=== PATIENT | female | born 1955 | race Hispanic/Latino ===

== ENCOUNTER 2017-12-08 08:16 | Outpatient (CLI) | payer OTHER | END 2017-12-08 08:17 | disposition home or self-care (01) | LOC: BICMAMMO 08:16 | PROVIDERS: ATTEND Physician Assistant | DX: Z12.31 Encounter for screening mammogram for malignant neoplasm of breast (principal) | CPT/HCPCS: 77063; 77067 ==

== ENCOUNTER 2018-03-14 11:03 | Outpatient (CLI) | payer OTHER | END 2018-03-14 11:04 | disposition home or self-care (01) | LOC: BICRAD 11:03 | PROVIDERS: ATTEND Family Medicine | DX: Z02.71 Encounter for disability determination (principal); M17.12 Unilateral primary osteoarthritis, left knee ==

== ENCOUNTER 2018-03-24 06:52 | Outpatient (CLI) | payer OTHER ==
--- NOTE | 2018-03-24 08:35 | ULT ---
PELVIC SONOGRAM TRANSABDOMINAL AND TRANSVAGINAL IMAGING: Date: 03/24/18 HISTORY: Postmenopausal bleeding. FINDINGS: Urinary bladder is decompressed. Uterus has a heterogeneous echotexture and is 8.7 cm. Endometrium is 1.4 cm. No free fluid. Neither ovary is visualized with transabdominal or transvaginal imaging. No solid or cystic adnexal m asses. IMPRESSION: Thickened endometrium of 1.4 cm. POS: [facility]
== END 2018-03-24 06:53 | disposition home or self-care (01) ==
LOC: BICULT 06:52
PROVIDERS: ATTEND Family Medicine
DX: N95.0 Postmenopausal bleeding (principal); R93.89 Abnormal findings on diagnostic imaging of other specified body structures
CPT/HCPCS: 76856

== ENCOUNTER 2020-10-22 11:36 | Outpatient (CLI) | payer MEDICARE | END 2020-10-22 11:37 | disposition home or self-care (01) | LOC: BICMAMMO 11:36 | PROVIDERS: ATTEND Nurse Practitioner Family | DX: Z12.31 Encounter for screening mammogram for malignant neoplasm of breast (principal) | CPT/HCPCS: 77063; 77067 ==

== ENCOUNTER 2022-02-02 07:30 | Outpatient (CLI) | payer MEDICARE | END 2022-02-02 07:31 | disposition home or self-care (01) | LOC: LABBT 07:30 | PROVIDERS: ATTEND Ophthalmology Retina Specialist | DX: Z20.822 Contact with and (suspected) exposure to COVID-19 (principal) | CPT/HCPCS: 87811 ==

== ENCOUNTER 2022-02-05 06:02 | Day surgery (SDC) | payer MEDICARE ==
[2022-02-03 15:41] VITALS: BMI 58.1
[~2022-02-05 06:02] MED LIST: Fluorouracil 100 MG, Enoxaparin Sodium 25 MG, EPINEPHrine 0.3 MG, Dextrose 50% 3 ML in ... IRR SCH
[2022-02-05] MEDS ORDERED: Phenylephrine 2.5% Ophth Soln 5 ML BOT ONE (06:30)
[2022-02-05] MEDS ORDERED: Cyclopentolate 1% Opth Drop 2 ML BOT ONE (06:30)
[2022-02-05] MEDS ORDERED: Midazolam HCl 2 mg/2 ml Vial ONE (06:43)
[2022-02-05] MEDS ORDERED: fentaNYL Citrate/PF 100 MCG/2 ML SYRINGE ONE (06:43)
[2022-02-05] MEDS ORDERED: Bupivacaine 0.75% 10 ML VIAL ONE (07:05)
[2022-02-05] MEDS ORDERED: CEFAZOLIN 1 GM VIAL ONE (07:05)
[2022-02-05] MEDS ORDERED: Lidocaine 4% PF 5 ML AMP ONE (07:05)
[2022-02-05] MEDS ORDERED: PROPOFOL 200 MG/20 ML VIAL ONE (07:05)
[2022-02-05] MEDS ORDERED: Triamcinolone 40 MG/ML VIAL ONE (07:05)
[2022-02-05] MEDS ORDERED: Lidocaine 1% PF 5 ML VIAL ONE (07:05)
[2022-02-05] MEDS ORDERED: Indocyanine Green 25 MG/10 ML VIAL ONE (07:05)
== END 2022-02-05 09:20 | disposition home or self-care (01) ==
LOC: SDC 06:02
PROVIDERS: ATTEND Ophthalmology Retina Specialist
PROC: 08T53ZZ Resection of Left Vitreous, Percutaneous Approach (ICD-10-PCS; principal; 2022-02-05)
PROC: 08NF3ZZ Release Left Retina, Percutaneous Approach (ICD-10-PCS; 2022-02-05)
DX: H35.342 Macular cyst, hole, or pseudohole, left eye (principal); Z79.890 Hormone replacement therapy; Z79.899 Other long term (current) drug therapy
CPT/HCPCS: 67025; J0171; J0690; J1650; J2250; J2704; J3301; J3490; J9190

== ENCOUNTER 2022-08-12 09:00 | Outpatient (CLI) | payer MEDICARE | END 2022-08-12 09:01 | disposition home or self-care (01) | LOC: BICMAMMO 09:00 | PROVIDERS: ATTEND Nurse Practitioner Family | DX: Z12.31 Encounter for screening mammogram for malignant neoplasm of breast (principal) | CPT/HCPCS: 77063; 77067 ==

== ENCOUNTER 2022-09-23 09:01 | Outpatient (CLI) | payer MEDICARE | END 2022-09-23 09:02 | disposition home or self-care (01) | LOC: BICRAD 09:01 | PROVIDERS: ATTEND Nurse Practitioner Family | DX: J18.9 Pneumonia, unspecified organism (principal); R91.8 Other nonspecific abnormal finding of lung field; J90 Pleural effusion, not elsewhere classified; J98.11 Atelectasis | CPT/HCPCS: 36415; 71046; 85025 ==

== ENCOUNTER 2022-10-07 10:18 | Outpatient (CLI) | payer MEDICARE | END 2022-10-07 10:19 | disposition home or self-care (01) | LOC: BICRAD 10:18 | PROVIDERS: ATTEND Nurse Practitioner Family | DX: J18.9 Pneumonia, unspecified organism (principal); R91.8 Other nonspecific abnormal finding of lung field | CPT/HCPCS: 36415; 71046; 85025 ==

== ENCOUNTER 2023-08-05 12:25 | Outpatient (CLI) | payer MEDICARE | END 2023-08-05 12:26 | disposition home or self-care (01) | LOC: RAD 12:25 | PROVIDERS: ATTEND Nurse Practitioner Family | DX: R09.89 Other specified symptoms and signs involving the circulatory and respiratory systems (principal); R05.9 Cough, unspecified | CPT/HCPCS: 71046; 87635 ==

== ENCOUNTER 2023-09-09 14:34 | Outpatient (CLI) | payer MEDICARE | END 2023-09-09 14:35 | disposition home or self-care (01) | LOC: BICULT 14:34 | PROVIDERS: ATTEND Nurse Practitioner Family | DX: D17.22 Benign lipomatous neoplasm of skin and subcutaneous tissue of left arm (principal) | CPT/HCPCS: 76999 ==